=== PATIENT | female | born 1985 | race Caucasian/White ===

== ENCOUNTER 2017-07-30 05:52 | Emergency (ER) | payer OTHER ==
[~2017-07-30] VITALS: Ht 165.1 cm; Wt 76.2 kg
[~2017-07-30 05:52] MED LIST: AUGMENTIN 875875 MG PO; IBUPROFEN 800800 M1 PO; NORCO 5-325 TA1 EACH PO; PRENA1 CHEW TA1.4 MG PO
[2017-07-30 05:58] VITALS: BP 134/78
[2017-07-30] MEDS ORDERED: ZOFRAN ODT4 MG PO (05:59)
[2017-07-30] MEDS ORDERED: NORCO 5-325 TA1 EACH PO (06:17)
[2017-07-30] MEDS ORDERED: MAGIC MOUTHWASH SWISH&SPIT (06:17)
[2017-07-30] MEDS ORDERED: PENICILLIN VK500 MG PO (06:17)
== END 2017-07-30 06:28 | disposition home or self-care (01) ==
LOC: M.ERS 05:52
DX: K02.9 Dental caries, unspecified (principal); Z88.6 Allergy status to analgesic agent